=== PATIENT | female | born 2000 | race Caucasian/White ===

== ENCOUNTER → 2019-07-16 03:55 | Observation (INO) ==
[2019-07-16 01:49] LABS: Amphetamine Screen,Urine Negative ng/mL (Cutoff=1000); Barbiturate Screen,Urine Negative ng/mL (Cutoff=200); Benzodiazepines Screen,Urine Negative ng/mL (Cutoff=200); Cannabinoid Screen,Urine Positive ng/mL (Cutoff = 50); Cocaine Screen,Urine Negative ng/mL (Cutoff= 300); Opiate Screen,Urine Negative ng/mL (Cutoff=300); Phencyclidine Screen,Urine Negative ng/mL (Cutoff=25)
[~2019-07-16 03:55] MED LIST: *HR* Nalbuphine 10 MG/ML AMPUL IV PRN
== END | disposition home or self-care (01) ==
LOC: 1NENULAB
PROVIDERS: ADMIT Registered Nurse; ATTEND Registered Nurse

== ENCOUNTER 2019-11-22 13:31 | Inpatient (IN) ==
[2019-11-22] MEDS ORDERED: Ketorolac 15 MG/ML VIAL IVP ONE (13:40)
[2019-11-22 14:06] LABS: Basophils % 0.2 %; Eosinophils % 0.1 %; Hematocrit 33.8 % (35.3-44.9); Hemoglobin 10.3 g/dL (11.5-15.4); Immature Granulocytes % 1.2 % (0-4); Lymphocytes # 1.1 K/mcL (0.6-4.6); Mean Corpuscular HGB Conc 30.5 g/dL (31.6-35.5); Mean Corpuscular Hemoglobin 22.1 pg (28.0-33.3); Mean Corpuscular Volume 72.5 fL (83.0-100.0); Mean Platelet Volume 8.8 fL (9.4-12.4); Monocytes # 0.5 K/mcL (0.0-1.3); Monocytes % 4.6 %; Neutrophils # 9.4 K/mcL (1.6-8.9); Platelet Count 263 K/mcL (140-400); Red Blood Count 4.66 M/mcL (3.82-4.97); Red Cell Distribution Width 20.6 % (11.5-14.5); Segmented Neutrophils % 83.9 %; White Blood Count 11.2 K/mcL (4.3-11.1)
[2019-11-22 14:06] LABS: Bilirubin,Urine Negative (Negative); Blood,Urine Moderate (Negative); Clarity,Urine Cloudy (Clear); Color,Urine Yellow (Yellow); Glucose,Urine (UA) Normal (Normal); Ketones,Urine Negative (Negative); Leukocyte Esterase,Urine Moderate (Negative); Nitrite,Urine Positive (Negative); Protein,Urine 100 mg/dL (Neg-Trace); Specific Gravity,Urine 1.018 (1.010-1.025); Urobilinogen,Urine Normal (Normal)
[2019-11-22] MEDS ORDERED: 0.9 % Sodium Chloride 1,000 ML IV ONE ×2 (14:07→14:57)
[2019-11-22 14:09] LABS: Bacteria,Urine Many per hpf (None-Few); RBC,Urine 15-30 per hpf (0-3); Squamous Epithelial Cell,Urine Moderate per lpf (None-Few); WBC,Urine TNTC per hpf (0-3)
[2019-11-22 14:16] LABS: Hyaline Casts,Urine None Seen per lpf (None-Few)
[2019-11-22 14:18] LABS: Alanine Aminotransferase 58 Units/L (7-52); Albumin 4.2 g/dL (3.5-5.7); Albumin/Globulin Ratio 1.4 (1.1-2.2); Alkaline Phosphatase 118 Units/L (34-104); Aspartate Amino Transferase 52 Units/L (13-39); BUN/Creatinine Ratio 16 (6-26); Bilirubin,Total 0.6 mg/dL (0.3-1.0); Blood Urea Nitrogen 12 mg/dL (6-20); Calcium 9.3 mg/dL (8.6-10.3); Carbon Dioxide 20 mEq/L (23-29); Chloride 104 mEq/L (98-107); Globulin 3.1 g/dL (2.4-3.5); Glucose 127 mg/dL (70-105); Osmolality,Calculated 275 (280-300); Potassium 3.9 mEq/L (3.5-5.1); Sodium 132 mEq/L (136-145); Total Protein 7.3 g/dL (6.4-8.9); eGFR For African Americans > 60 (> 60); eGFR For Non-African Americans > 60 (> 60)
[2019-11-22] MEDS ORDERED: cefTRIAXone 1,000 MG in Water for inj. (sterile) 10 ML IVP ONE ×2 (14:49→20:31)
[2019-11-22] MEDS ORDERED: Morphine Sulfate 2 MG/ML SYRINGE IVP ONE (15:21)
[2019-11-22] MEDS ORDERED: Naloxone 0.4 MG/ML INJ IVP PRN (16:05)
[2019-11-22] MEDS ORDERED: 0.9 % Sodium Chloride 1,000 ML IVC SCH (16:15)
[2019-11-22] MEDS ORDERED: *HR* OxyCODONE Oral Soln 5 MG/5 ML UD.LIQ PO PRN (16:30)
[2019-11-22] MEDS: 0.9 % Sodium Chloride 1,000 ML IVC SCH (17:35)
[2019-11-22] MEDS: Ketorolac 30 MG/ML VIAL IVP PRN (20:14)
[2019-11-23] MEDS ORDERED: Acetaminophen IV 1,000 MG/100 ML INFUS..BTL IVPB ONE (01:08)
[2019-11-23] MEDS: 0.9 % Sodium Chloride 1,000 ML IVC SCH (04:33)
[2019-11-23 04:49] LABS: Acinetobacter baumannii by PCR Not Detected (Not Detect); Candida albicans by PCR Not Detected (Not Detect); Candida glabrata by PCR Not Detected (Not Detect); Candida krusei by PCR Not Detected (Not Detect); Candida parapsilosis by PCR Not Detected (Not Detect); Candida tropicalis by PCR Not Detected (Not Detect); Enterobacter cloacae Cmplx PCR Not Detected (Not Detect); Enterococcus by PCR Not Detected (Not Detect); Escherichia coli by PCR DETECTED (Not Detect); Klebsiella oxytoca by PCR Not Detected (Not Detect); Klebsiella pneumoniae by PCR Not Detected (Not Detect); Proteus by PCR Not Detected (Not Detect); Pseudomonas aeruginosa by PCR Not Detected (Not Detect); Serratia marcescens by PCR Not Detected (Not Detect); Staphylococcus aureus by PCR Not Detected (Not Detect); Staphylococcus by PCR Not Detected (Not Detect); Streptococcus agalactiae(B)PCR Not Detected (Not Detect); Streptococcus by PCR Not Detected (Not Detect); Streptococcus pneumoniae PCR Not Detected (Not Detect); Streptococcus pyogenes (A) PCR Not Detected (Not Detect); blaKPC Carbapenem-Resist Gene Not Detected (Not Detect)
[2019-11-23 05:00] LABS: Basophils % 0.3 %; Eosinophils % 0.1 %; Hematocrit 30.7 % (35.3-44.9); Hemoglobin 9.2 g/dL (11.5-15.4); Immature Granulocytes % 0.4 % (0-4); Lymphocytes # 0.9 K/mcL (0.6-4.6); Lymphocytes % 11.7 %; Mean Corpuscular Hemoglobin 22.1 pg (28.0-33.3); Mean Corpuscular Volume 73.8 fL (83.0-100.0); Mean Platelet Volume 9.2 fL (9.4-12.4); Monocytes # 0.4 K/mcL (0.0-1.3); Monocytes % 5.9 %; Neutrophils # 6.1 K/mcL (1.6-8.9); Platelet Count 187 K/mcL (140-400); Red Blood Count 4.16 M/mcL (3.82-4.97); Red Cell Distribution Width 20.4 % (11.5-14.5); Segmented Neutrophils % 81.6 %; White Blood Count 7.5 K/mcL (4.3-11.1)
[2019-11-23 05:16] LABS: Iron < 10 mcg/dL (50-170); Transferrin 235 mg/dL (203-362)
[2019-11-23 05:17] LABS: Alanine Aminotransferase 72 Units/L (7-52); Albumin 3.2 g/dL (3.5-5.7); Albumin/Globulin Ratio 1.2 (1.1-2.2); Alkaline Phosphatase 123 Units/L (34-104); Aspartate Amino Transferase 62 Units/L (13-39); BUN/Creatinine Ratio 14 (6-26); Bilirubin,Total 0.5 mg/dL (0.3-1.0); Blood Urea Nitrogen 10 mg/dL (6-20); Calcium 8.2 mg/dL (8.6-10.3); Carbon Dioxide 19 mEq/L (23-29); Chloride 108 mEq/L (98-107); Globulin 2.6 g/dL (2.4-3.5); Glucose 116 mg/dL (70-105); Osmolality,Calculated 276 (280-300); Potassium 3.7 mEq/L (3.5-5.1); Sodium 133 mEq/L (136-145); Total Protein 5.8 g/dL (6.4-8.9); eGFR For African Americans > 60 (> 60); eGFR For Non-African Americans > 60 (> 60)
[2019-11-23 05:41] LABS: Platelet Estimate Normal (Normal)
[2019-11-23 05:47] LABS: Hepatitis B Surface Antigen Nonreactive (Nonreactive)
[2019-11-23 06:16] LABS: Hepatitis B Core IgM Nonreactive (Nonreactive)
[2019-11-23 06:17] LABS: Hepatitis A Antibody IgM Nonreactive (Nonreactive); Hepatitis C Virus Antibody Nonreactive (Nonreactive)
[2019-11-23] MEDS: *HR* OxyCODONE/APAP 7.5/325 TABLET PO PRN ×2 (08:28→17:20)
[2019-11-23] MEDS: AMPHETAMINE PO SCH (09:54)
[2019-11-23] MEDS: DEXTROAMPHETAMINE PO SCH (09:54)
[2019-11-23] MEDS ORDERED: Aminoglycoside Consult 1 EACH MC ONE (10:27)
[2019-11-23] MEDS: Ketorolac 30 MG/ML VIAL IVP PRN ×2 (10:57→18:32)
[2019-11-23] MEDS: cefTRIAXone 2,000 MG in Water for inj. (sterile) 20 ML IVP SCH (12:24)
[2019-11-23] MEDS ORDERED: 0.9 % Sodium Chloride 1,000 ML IVC SCH (15:15)
[2019-11-23] MEDS: Ondansetron 4 MG/2 ML VIAL IVP PRN (15:26)
[2019-11-24] MEDS: *HR* OxyCODONE/APAP 7.5/325 TABLET PO PRN ×4 (01:57→22:44)
[2019-11-24] MEDS: Ketorolac 30 MG/ML VIAL IVP PRN ×3 (04:07→22:43)
[2019-11-24 06:03] LABS: Basophils % 0.2 %; Eosinophils % 0.4 %; Hematocrit 27.4 % (35.3-44.9); Hemoglobin 8.4 g/dL (11.5-15.4); Immature Granulocytes % 0.6 % (0-4); Lymphocytes # 0.6 K/mcL (0.6-4.6); Lymphocytes % 11.9 %; Mean Corpuscular HGB Conc 30.7 g/dL (31.6-35.5); Mean Corpuscular Hemoglobin 22.3 pg (28.0-33.3); Mean Corpuscular Volume 72.9 fL (83.0-100.0); Mean Platelet Volume 9.7 fL (9.4-12.4); Monocytes # 0.3 K/mcL (0.0-1.3); Monocytes % 6.9 %; Neutrophils # 3.7 K/mcL (1.6-8.9); Platelet Count 156 K/mcL (140-400); Red Blood Count 3.76 M/mcL (3.82-4.97); Red Cell Distribution Width 20.7 % (11.5-14.5); White Blood Count 4.6 K/mcL (4.3-11.1)
[2019-11-24 06:17] LABS: Platelet Estimate Normal (Normal)
[2019-11-24 06:18] LABS: Anisocytosis 1+ (Not Present); Burr Cells 1+ (Not Present); Poikilocytosis 1+ (Not Present); Reactive Lymphocytes Present (Not Present)
[2019-11-24 06:24] LABS: BUN/Creatinine Ratio 11 (6-26); Blood Urea Nitrogen 10 mg/dL (6-20); Calcium 8.4 mg/dL (8.6-10.3); Carbon Dioxide 20 mEq/L (23-29); Chloride 107 mEq/L (98-107); Glucose 119 mg/dL (70-105); Magnesium 1.5 mg/dL (1.6-2.6); Osmolality,Calculated 278 (280-300); Phosphorous 2.3 mg/dL (2.7-4.5); Potassium 3.7 mEq/L (3.5-5.1); Sodium 134 mEq/L (136-145); eGFR For African Americans > 60 (> 60); eGFR For Non-African Americans > 60 (> 60)
[2019-11-24] MEDS ORDERED: Iron Sucrose Complex 400 MG in 0.9 % Sodium Chloride 250 ML IVPB ONE (08:15)
[2019-11-24] MEDS: AMPHETAMINE PO SCH (09:03)
[2019-11-24] MEDS: DEXTROAMPHETAMINE PO SCH (09:03)
[2019-11-24 09:11] LABS: Albumin 3.3 g/dL (3.5-5.7); Albumin/Globulin Ratio 1.1 (1.1-2.2); Bilirubin,Direct 0.3 mg/dL (0.0-0.2); Bilirubin,Indirect 0.2 mg/dL (0.0-1.0); Bilirubin,Total 0.5 mg/dL (0.3-1.0); Globulin 2.9 g/dL (2.4-3.5); Total Protein 6.2 g/dL (6.4-8.9)
[2019-11-24] MEDS: cefTRIAXone 2,000 MG in Water for inj. (sterile) 20 ML IVP SCH (12:39)
[2019-11-24] MEDS ORDERED: 0.9 % Sodium Chloride 1,000 ML IVC ONE (15:30)
[2019-11-24] MEDS: Ondansetron 4 MG/2 ML VIAL IVP PRN (18:37)
[2019-11-25 00:56] LABS: Basophils % 0.3 %; Eosinophils % 0.5 %; Hematocrit 26.6 % (35.3-44.9); Immature Granulocytes % 0.5 % (0-4); Lymphocytes # 0.6 K/mcL (0.6-4.6); Lymphocytes % 17.3 %; Mean Corpuscular HGB Conc 30.1 g/dL (31.6-35.5); Mean Corpuscular Hemoglobin 21.9 pg (28.0-33.3); Mean Corpuscular Volume 72.9 fL (83.0-100.0); Mean Platelet Volume 10.3 fL (9.4-12.4); Monocytes # 0.2 K/mcL (0.0-1.3); Monocytes % 4.9 %; Neutrophils # 2.8 K/mcL (1.6-8.9); Platelet Count 159 K/mcL (140-400); Red Blood Count 3.65 M/mcL (3.82-4.97); Red Cell Distribution Width 21.2 % (11.5-14.5); Segmented Neutrophils % 76.5 %; White Blood Count 3.7 K/mcL (4.3-11.1)
[2019-11-25 01:14] LABS: Anisocytosis 2+ (Not Present); Microcytosis Present (Not Present); Platelet Estimate Normal (Normal)
[2019-11-25 01:15] LABS: BUN/Creatinine Ratio 11 (6-26); Blood Urea Nitrogen 10 mg/dL (6-20); Carbon Dioxide 22 mEq/L (23-29); Chloride 107 mEq/L (98-107); Glucose 118 mg/dL (70-105); Magnesium 1.9 mg/dL (1.6-2.6); Osmolality,Calculated 284 (280-300); Phosphorous 4.9 mg/dL (2.7-4.5); Potassium 3.7 mEq/L (3.5-5.1); Sodium 137 mEq/L (136-145); eGFR For African Americans > 60 (> 60); eGFR For Non-African Americans > 60 (> 60)
[2019-11-25 06:22] VITALS: BP 119/80
[2019-11-25] MEDS: DEXTROAMPHETAMINE PO SCH (09:20)
[2019-11-25] MEDS: AMPHETAMINE PO SCH (09:20)
[2019-11-25] MEDS: *HR* OxyCODONE/APAP 7.5/325 TABLET PO PRN (09:21)
== END 2019-11-25 10:28 | disposition home or self-care (01) ==
LOC: 3ANU 13:31 → EMEROOARM 13:31 → 3ANU 16:18
PROVIDERS: ADMIT Family Medicine; ATTEND Family Medicine

== ENCOUNTER → 2021-06-14 13:39 | Observation (INO) ==
[2021-06-14 03:48] LABS: Bacteria,Urine Few per hpf (None-Few); Bilirubin,Urine Negative (Negative); Blood,Urine Large (Negative); Clarity,Urine Turbid (Clear); Color,Urine Yellow (Yellow); Glucose,Urine (UA) Normal (Normal); Ketones,Urine Negative (Negative); Leukocyte Esterase,Urine Negative (Negative); Mucus,Urine Few per lpf (None-Few); Nitrite,Urine Negative (Negative); PH,Urine 6.5 pH Units (5.0-8.0); Protein,Urine 30 mg/dL (Neg-Trace); RBC,Urine TNTC per hpf (0-3); Specific Gravity,Urine 1.021 (1.010-1.025); Squamous Epithelial Cell,Urine Few per hpf (None-Few); Urobilinogen,Urine Normal (Normal)
[2021-06-14] MEDS: Ringers Solution, Lactated 1,000 ML IVC SCH ×2 (04:00→07:49)
[2021-06-14 04:06] LABS: Amphetamine Screen,Urine Positive ng/mL (Cutoff=1000); Barbiturate Screen,Urine Negative ng/mL (Cutoff=200); Benzodiazepines Screen,Urine Negative ng/mL (Cutoff=200); Cannabinoid Screen,Urine Positive ng/mL (Cutoff = 50); Cocaine Screen,Urine Negative ng/mL (Cutoff= 300); Opiate Screen,Urine Negative ng/mL (Cutoff=300); Phencyclidine Screen,Urine Negative ng/mL (Cutoff=25)
[2021-06-14 04:46] LABS: Candida DNA Not Detected (Not Detect); Gardnerella DNA DETECTED (Not Detect); Trichomonas DNA Not Detected (Not Detect)
[2021-06-14 04:50] LABS: Basophils % 0.3 %; Eosinophils # 0.1 K/mcL (0.0-0.6); Hematocrit 31.6 % (35.3-44.9); Hemoglobin 10.4 g/dL (11.5-15.4); Immature Granulocytes % 0.5 % (0-4); Lymphocytes # 2.4 K/mcL (0.6-4.6); Lymphocytes % 22.9 %; Mean Corpuscular HGB Conc 32.9 g/dL (31.6-35.5); Mean Corpuscular Hemoglobin 30.1 pg (28.0-33.3); Mean Corpuscular Volume 91.3 fL (83.0-100.0); Mean Platelet Volume 9.5 fL (9.4-12.4); Monocytes # 0.6 K/mcL (0.0-1.3); Monocytes % 5.8 %; Neutrophils # 7.2 K/mcL (1.6-8.9); Platelet Count 256 K/mcL (140-400); Red Blood Count 3.46 M/mcL (3.82-4.97); Red Cell Distribution Width 13.4 % (11.5-14.5); Segmented Neutrophils % 69.5 %; White Blood Count 10.4 K/mcL (4.3-11.1)
[2021-06-14 05:10] LABS: Alanine Aminotransferase 8 Units/L (7-52); Albumin 3.4 g/dL (3.5-5.7); Albumin/Globulin Ratio 1.3 (1.1-2.2); Alkaline Phosphatase 66 Units/L (34-104); Aspartate Amino Transferase 11 Units/L (13-39); BUN/Creatinine Ratio 13 (6-26); Bilirubin,Total 0.2 mg/dL (0.3-1.0); Blood Urea Nitrogen 6 mg/dL (6-20); Calcium 8.7 mg/dL (8.6-10.3); Carbon Dioxide 27 mEq/L (23-29); Chloride 106 mEq/L (98-107); Globulin 2.6 g/dL (2.4-3.5); Glucose 96 mg/dL (70-105); Osmolality,Calculated 281 (280-300); Potassium 3.9 mEq/L (3.5-5.1); Sodium 137 mEq/L (136-145); eGFR For African Americans > 60 (> 60); eGFR For Non-African Americans > 60 (> 60)
[~2021-06-14 13:39] MED LIST changes: -*HR* Nalbuphine 10 MG/ML AMPUL IV PRN; +Ondansetron 4 MG/2 ML VIAL IVP ONE; +Ondansetron 4 MG/2 ML VIAL IVP PRN; +Ringers Solution, Lactated 1,000 ML IVC SCH; +cefTRIAXone 1,000 MG in 0.9 % Sodium Chloride Mini Bag 100 ML IVPB SCH; +metroNIDAZOLE 500 MG TABLET PO SCH
== END | disposition home or self-care (01) ==
LOC: 1NENULAB
PROVIDERS: ADMIT Obstetrics & Gynecology; ATTEND Obstetrics & Gynecology

== ENCOUNTER 2021-09-13 01:10 | Inpatient (IN) ==
[2021-09-12 23:10] LABS: Bilirubin,Urine Negative (Negative); Blood,Urine Negative (Negative); Clarity,Urine Clear (Clear); Color,Urine Yellow (Yellow); Glucose,Urine (UA) Normal (Normal); Ketones,Urine Negative (Negative); Leukocyte Esterase,Urine Negative (Negative); Mucus,Urine Few per lpf (None-Few); Nitrite,Urine Negative (Negative); PH,Urine 6.5 pH Units (5.0-8.0); Protein,Urine 70 mg/dL (Neg-Trace); RBC,Urine 0-3 per hpf (0-3); Specific Gravity,Urine > 1.030 (1.010-1.025); Squamous Epithelial Cell,Urine Few per hpf (None-Few); Urobilinogen,Urine Normal (Normal)
[2021-09-13] LABS: Basophils % 0.3 %; Eosinophils % 0.4 %; Hematocrit 29.6 % (35.3-44.9); Hemoglobin 9.3 g/dL (11.5-15.4); Immature Granulocytes % 0.7 % (0-4); Lymphocytes # 0.4 K/mcL (0.6-4.6); Lymphocytes % 5.9 %; Mean Corpuscular HGB Conc 31.4 g/dL (31.6-35.5); Mean Corpuscular Hemoglobin 28.3 pg (28.0-33.3); Mean Platelet Volume 9.8 fL (9.4-12.4); Monocytes # 0.4 K/mcL (0.0-1.3); Monocytes % 6.1 %; Neutrophils # 6.3 K/mcL (1.6-8.9); Platelet Count 242 K/mcL (140-400); Red Blood Count 3.29 M/mcL (3.82-4.97); Red Cell Distribution Width 15.2 % (11.5-14.5); Segmented Neutrophils % 86.6 %; White Blood Count 7.3 K/mcL (4.3-11.1)
[2021-09-13 00:27] LABS: Influenza A PCR Negative (Negative); Influenza B PCR Negative (Negative); Resp. Syncytial Virus PCR Negative (Negative)
[2021-09-13 00:31] LABS: SARS-CoV-2 by PCR (In House) Positive (Negative)
[2021-09-13 00:47] LABS: Alanine Aminotransferase 7 Units/L (7-52); Albumin 3.5 g/dL (3.5-5.7); Albumin/Globulin Ratio 1.2 (1.1-2.2); Alkaline Phosphatase 148 Units/L (34-104); Aspartate Amino Transferase 13 Units/L (13-39); BUN/Creatinine Ratio 22 (6-26); Bilirubin,Total 0.2 mg/dL (0.3-1.0); Blood Urea Nitrogen 11 mg/dL (6-20); Calcium 8.1 mg/dL (8.6-10.3); Carbon Dioxide 25 mEq/L (23-29); Chloride 103 mEq/L (98-107); Globulin 2.9 g/dL (2.4-3.5); Glucose 82 mg/dL (70-105); Osmolality,Calculated 278 (280-300); Potassium 3.6 mEq/L (3.5-5.1); Sodium 135 mEq/L (136-145); Total Protein 6.4 g/dL (6.4-8.9); eGFR For African Americans > 60 (> 60); eGFR For Non-African Americans > 60 (> 60)
[~2021-09-13 01:10] MED LIST changes: +Acetaminophen IV 1,000 MG/100 ML BAG IVPB ONE; -Ondansetron 4 MG/2 ML VIAL IVP ONE; -Ondansetron 4 MG/2 ML VIAL IVP PRN; +Ringers Solution, Lactated 1,000 ML IVC ONE; -cefTRIAXone 1,000 MG in 0.9 % Sodium Chloride Mini Bag 100 ML IVPB SCH; -metroNIDAZOLE 500 MG TABLET PO SCH
[2021-09-13] MEDS ORDERED: Ringers Solution, Lactated 1,000 ML IVC SCH (01:15)
[2021-09-13] MEDS ORDERED: Azithromycin 500 MG in 0.9 % Sodium Chloride 250 ML IVPB SCH (02:00)
[2021-09-13] MEDS: Ampicillin/Sulbactam 3,000 MG in 0.9 % Sodium Chloride Mini Bag 100 ML IVPB SCH ×3 (02:25→10:35)
[2021-09-13] MEDS ORDERED: Ondansetron ODT 4 MG TAB.RAPDIS SL PRN (03:25)
[2021-09-13] MEDS ORDERED: EPHEDrine 50 MG/ML VIAL IVP PRN (06:22)
[2021-09-13] MEDS ORDERED: Epidural Premix (fent/bupiv) 110 ML EP SCH (06:30)
[2021-09-13] MEDS ORDERED: miSOPROStoL 25 MCG TABLET PO PRN (07:18)
[2021-09-13] MEDS ORDERED: *HR* Nalbuphine 10 MG/ML AMPUL IV PRN (07:25)
[2021-09-13] MEDS ORDERED: Remdesivir 200 MG in 0.9 % Sodium Chloride 100 ML IVPB ONE ×2 (12:17→14:00)
[2021-09-14] MEDS ORDERED: Remdesivir 100 MG in 0.9 % Sodium Chloride 100 ML IVPB SCH (13:00)
== END 2021-09-13 13:22 | disposition short-term general hospital (02) | DRG 566 ==
LOC: 1NENULAB
PROVIDERS: ADMIT Student in an Organized Health Care Education/Training Program; ATTEND Student in an Organized Health Care Education/Training Program

== ENCOUNTER 2021-10-20 20:23 | Inpatient (IN) ==
[2021-10-20 21:15] LABS: Bacteria,Urine Few per hpf (None-Few); Bilirubin,Urine Negative (Negative); Blood,Urine Moderate (Negative); Clarity,Urine Clear (Clear); Color,Urine Yellow (Yellow); Glucose,Urine (UA) Normal (Normal); Ketones,Urine Negative (Negative); Leukocyte Esterase,Urine Moderate (Negative); Mucus,Urine Few per lpf (None-Few); Nitrite,Urine Negative (Negative); Protein,Urine Trace mg/dL (Neg-Trace); RBC,Urine 0-3 per hpf (0-3); Specific Gravity,Urine 1.025 (1.010-1.025); Squamous Epithelial Cell,Urine Moderate per hpf (None-Few); Urobilinogen,Urine Normal (Normal)
[2021-10-20 21:17] LABS: Basophils % 0.6 %; Eosinophils # 0.1 K/mcL (0.0-0.6); Eosinophils % 1.7 %; Hematocrit 38.8 % (35.3-44.9); Immature Granulocytes % 0.2 % (0-4); Lymphocytes # 2.7 K/mcL (0.6-4.6); Mean Corpuscular HGB Conc 30.9 g/dL (31.6-35.5); Mean Corpuscular Hemoglobin 26.4 pg (28.0-33.3); Mean Corpuscular Volume 85.5 fL (83.0-100.0); Mean Platelet Volume 8.7 fL (9.4-12.4); Monocytes # 0.4 K/mcL (0.0-1.3); Monocytes % 5.9 %; Neutrophils # 3.3 K/mcL (1.6-8.9); Platelet Count 365 K/mcL (140-400); Red Blood Count 4.54 M/mcL (3.82-4.97); Red Cell Distribution Width 14.3 % (11.5-14.5); Segmented Neutrophils % 50.6 %; White Blood Count 6.5 K/mcL (4.3-11.1)
[2021-10-20 21:31] LABS: Amphetamine Screen,Urine Positive ng/mL (Cutoff=1000); Barbiturate Screen,Urine Negative ng/mL (Cutoff=200); Benzodiazepines Screen,Urine Negative ng/mL (Cutoff=200); Cannabinoid Screen,Urine Positive ng/mL (Cutoff = 50); Cocaine Screen,Urine Negative ng/mL (Cutoff= 300); Opiate Screen,Urine Negative ng/mL (Cutoff=300); Phencyclidine Screen,Urine Negative ng/mL (Cutoff=25)
[2021-10-20 21:36] LABS: Acetaminophen < 10 mcg/mL (10-20); Alanine Aminotransferase 14 Units/L (7-52); Albumin 4.5 g/dL (3.5-5.7); Albumin/Globulin Ratio 1.5 (1.1-2.2); Alkaline Phosphatase 118 Units/L (34-104); Aspartate Amino Transferase 16 Units/L (13-39); BUN/Creatinine Ratio 22 (6-26); Bilirubin,Indirect 0.2 mg/dL (0.0-1.0); Bilirubin,Total 0.2 mg/dL (0.3-1.0); Blood Urea Nitrogen 16 mg/dL (6-20); Calcium 9.8 mg/dL (8.6-10.3); Carbon Dioxide 26 mEq/L (23-29); Chloride 104 mEq/L (98-107); Ethanol < 10 mg/dL (Less than 10); Globulin 3.1 g/dL (2.4-3.5); Glucose 75 mg/dL (70-105); Osmolality,Calculated 284 (280-300); Potassium 3.7 mEq/L (3.5-5.1); Salicylate < 2.5 mg/dL (15.0-30.0); Sodium 137 mEq/L (136-145); Total Protein 7.6 g/dL (6.4-8.9); eGFR For African Americans > 60 (> 60); eGFR For Non-African Americans > 60 (> 60)
[2021-10-20 21:49] LABS: Influenza A PCR Negative (Negative); Influenza B PCR Negative (Negative); Resp. Syncytial Virus PCR Negative (Negative)
[2021-10-20 21:50] LABS: SARS-CoV-2 by PCR (In House) Negative (Negative)
[2021-10-21] MEDS ORDERED: hydrOXYzine pamoate 25 MG CAPSULE PO PRN (03:23)
[2021-10-21] MEDS ORDERED: traZODone 50 MG TABLET PO PRN (03:23)
[2021-10-21] MEDS ORDERED: haloperidoL 5 MG TABLET PO PRN (03:23)
[2021-10-21] MEDS ORDERED: Acetaminophen 325 MG TABLET PO PRN (03:23)
[2021-10-21] MEDS ORDERED: Ibuprofen 400 MG TABLET PO PRN (03:23)
[2021-10-21] MEDS ORDERED: *HR* LORazepam 2 MG/ML VIAL IM PRN (03:23)
[2021-10-21] MEDS ORDERED: Haloperidol Lactate 5 MG/ML VIAL IM PRN (03:23)
[2021-10-21] MEDS ORDERED: *HR* LORazepam 1 MG TABLET PO PRN (04:00)
[2021-10-21] MEDS ORDERED: MOM Conc 10 ML UD.LIQ PO PRN (12:20)
[2021-10-21] MEDS ORDERED: Mag Hydrox/Al Hydrox/Simeth 30 ML UDC PO PRN (12:20)
[2021-10-21] MEDS: Nicotine 21 MG PATCH.TD24 TD SCH (12:34)
[2021-10-22] MEDS: Nicotine 21 MG PATCH.TD24 TD SCH ×2 (09:39→18:47)
[2021-10-23] MEDS: Nicotine 21 MG PATCH.TD24 TD SCH (09:09)
[2021-10-24] MEDS: Nicotine 21 MG PATCH.TD24 TD SCH (08:36)
[2021-10-24 09:15] VITALS: BP 127/86; PULSE 114; TEMP 97; O2SAT 98
== END 2021-10-24 11:00 | disposition home or self-care (01) | DRG 757 ==
LOC: EMEROOARM 20:23 → 1ANU 10-21 03:27
PROVIDERS: ADMIT Psychiatry & Neurology Psychiatry; ATTEND Psychiatry & Neurology Psychiatry